=== PATIENT | male | born 1970 | race Caucasian/White ===

== ENCOUNTER 2018-04-17 21:48 | Emergency (ER) | payer OTHER ==
--- NOTE | 2018-04-17 22:58 | CPEKG ---
Test Reason : OPEN Blood Pressure : / mmHG Vent. Rate : 068 BPM Atrial Rate : 067 BPM P-R Int : 163 ms QRS Dur : 085 ms QT Int : 373 ms P-R-T Axes : 008 -64 015 degrees QTc Int : 397 ms Sinus rhythm Inferior infarct, old Confirmed by Mary Rodriguez ([id number]) on 04/17/2018 10:58:27 PM Referred By: PHYSICIAN ED Confirmed By:Mary Rodriguez
[2018-04-17 23:25] LABS: PLATELET COUNT 365 10^3/uL (150-400)
--- NOTE | 2018-04-17 23:25 | EDPHY ---
H & P Stated Complaint: abnormal EKG, L arm tingling Time Seen by Provider: 04/17/18 22:52 HPI/ROS: HPI The patient presents with left arm tingling which has been intermittent for the last 10 days. He initially noticed it while he was lying on his right side. He now has noticed it more when he walks and when he is in other positions. It usually lasts for a few minutes and then with massage of his arm his symptoms improved. He feels this in his forearm and hand predominantly. He does not have any pain of his arm. He has not had any injuries to his arm or neck. He has not any chest pain, shortness of breath, nausea, vomiting, dizziness, diaphoresis. He has not had a fever or cough.. REVIEW OF SYSTEMS 10 systems were reviewed and negative with the exception of the elements mentioned in the history of present illness. PMHx: No hypertension, no diabetes, does not take any medications regularly, has never had any cardiac testing Soc Hx: Currently incarcerated, denies any cigarette use FHx: Parents without any history of CAD PHYSICAL General Appearance: Alert, no distress Eyes: Pupils equal and round no pallor or injection ENT, Mouth: Mucous membranes moist Respiratory: There are no retractions, lungs are clear to auscultation Cardiovascular: Regular rate and rhythm Gastrointestinal: Abdomen is soft and non-tender, no masses, bowel sounds normal Neurological: A&O, 5/5 strength in upper extremities which is symmetric, normal tone, no muscle atrophy, sensation intact to light touch throughout his hands and arms Skin: Warm and dry, no rashes Musculoskeletal: Neck is supple non tender Extremities: symmetrical, full range of motion Psychiatric: Patient is oriented X 3, there is no agitation Source: Patient Exam Limitations: No limitations - Personal History Current Tetanus/Diphtheria Vaccine: Yes - Medical/Surgical History Hx Asthma: No Hx Chronic Respiratory Disease: No Hx Diabetes: No Hx Cardiac Disease: No Hx Renal Disease: No Hx Cirrhosis: No Hx Alcoholism: No Hx HIV/AIDS: No Hx Splenectomy or Spleen Trauma: No Other PMH: denies - Social History Smoking Status: Never smoked Constitutional: Initial Vital Signs Temperature (C) 36.7 C 04/17/18 21:49 Heart Rate 91 04/17/18 21:49 Respiratory Rate 16 04/17/18 21:49 Blood Pressure 133/99 H 04/17/18 21:49 O2 Sat (%) 96 04/17/18 21:49 O2 Delivery Mode Room Air Allergies/Adverse Reactions: No Known Allergies Allergy (Unverified 04/17/18 21:50) Home Medications: Medication Instructions Recorded NK [No Known Home Meds] 04/17/18 Medical Decision Making - Diagnostics EKG Interpretation: EKG: Complete interpretation has been separately recorded in the [facility] [employer] archive. Summary impression: No ST segment changes Imaging Results: Imaging Impressions Chest X-Ray 04/17/18 23:11 Impression: Normal chest x-ray. Imaging: I viewed and interpreted images myself Differential Diagnosis: This is a 47-year-old inmate from long-term who presents with left arm tingling, reported abnormal EKG in long-term. Symptoms have been intermittent for about 10 days now. Not accompanied by any chest pain, shortness of breath, nausea, vomiting, dizziness, diaphoresis. Currently asymptomatic. Normal neurologic and vascular exam. Differential diagnosis includes ACS, peripheral neuropathy, radiculopathy from cervical spine. His sister was recently diagnosed with multiple sclerosis, thus this is also on my differential. In the emergency department are EKG is unremarkable. His labs demonstrated negative troponin, he does have elevated hemoglobin which could signify polycythemia. He has no prior history of this. He is not hypoxic. He does report that his was giving him testosterone injections so I wonder if this is the cause. Chest x-ray was normal. I have calculated his HEART score at 2, which puts him at low risk for cardiac event. I feel he is safe for discharge with outpatient follow-up with Cardiology. He will be discharged from the emergency department. I consulted with the long-term nurse Trevor who accepts the patient back to long-term. We discussed the patient's testing here in the emergency department. - Data Points Laboratory Results: Laboratory Results 04/17/18 22:55 04/17/18 22:55 04/17/18 04/17/18 04/17/18 22:59 22:55 22:55 WBC 8.65 10^3/uL 10^3/uL (3.80-9.50) RBC 6.54 10^6/uL H 10^6/uL (4.40-6.38) Hgb 21.2 g/dL H* g/dL (13.7-17.5) Hct 60.1 % H* % (40.0-51.0) MCV 91.9 fL fL (81.5-99.8) MCH 32.4 pg pg (27.9-34.1) MCHC 35.3 g/dL g/dL (32.4-36.7) RDW 13.6 % % (11.5-15.2) Plt Count 365 10^3/uL 10^3/uL (150-400) MPV 8.6 fL L fL (8.7-11.7) Neut % (Auto) 66.7 % % (39.3-74.2) Lymph % (Auto) 17.9 % % (15.0-45.0) [place] % (Auto) 9.0 % % (4.5-13.0) Eos % (Auto) 5.2 % % (0.6-7.6) Baso % (Auto) 0.6 % % (0.3-1.7) Nucleat RBC Rel Count 0.0 % % (0.0-0.2) Absolute Neuts (auto) 5.77 10^3/uL 10^3/uL (1.70-6.50) Absolute Lymphs (auto) 1.55 10^3/uL 10^3/uL (1.00-3.00) Absolute Monos (auto) 0.78 10^3/uL 10^3/uL (0.30-0.80) Absolute Eos (auto) 0.45 10^3/uL H 10^3/uL (0.03-0.40) Absolute Basos (auto) 0.05 10^3/uL 10^3/uL (0.02-0.10) Absolute Nucleated RBC 0.00 10^3/uL 10^3/uL (0-0.01) Immature Gran % 0.6 % % (0.0-1.1) Immature Gran # 0.05 10^3/uL 10^3/uL (0.00-0.10) Sodium 139 mEq/L mEq/L (135-145) Potassium 4.2 mEq/L mEq/L (3.5-5.2) Chloride 100 mEq/L mEq/L (97-110) Carbon Dioxide 25 mEq/l mEq/l (22-31) Anion Gap 14 mEq/L mEq/L (6-14) BUN 17 mg/dL mg/dL (7-23) Creatinine 1.2 mg/dL mg/dL (0.7-1.3) Estimated GFR > 60 Glucose 89 mg/dL mg/dL (70-100) Calcium 10.1 mg/dL mg/dL (8.5-10.4) POC Troponin I 0.01 ng/mL ng/mL (0.00-0.08) Point of Care Test Results: Chemistry 04/17/18 22:59 POC Troponin I 0.01 ng/mL ng/mL (0.00-0.08) Departure - Departure Disposition: Law Enforcement/Court/Detention Clinical Impression: Paresthesia of left arm, Polycythemia Condition: Good Instructions: Heart Attack (DC) Additional Instructions: Please return to the emergency department if your worse in any way. You should avoid using any testosterone. Your EKG, chest x-ray, labs including troponin were all normal. I have referred you to Cardiology for an outpatient follow-up. Your medically clear to return to long-term. Referrals: [facility] [Provider Group] - As per Instructions
[2018-04-18 00:32] VITALS: BP 128/90
== END 2018-04-18 00:32 ==
DX: R20.2 Paresthesia of skin (principal)
CPT/HCPCS: 84484-ER